=== PATIENT | male | born 1985 | race Caucasian/White ===

== ENCOUNTER 2019-08-03 16:29 | Emergency (ER) | payer OTHER, BC ==
[2019-08-03] MEDS ORDERED: Diphtheria,Pertussis(Acell),Tetanus Vaccine 0.5 ML Syringe IM ONE (16:54)
[2019-08-03] MEDS ORDERED: Sodium Chloride 0.9% 1,000 ML IV SCH (17:00)
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
--- NOTE | 2019-08-03 17:50 | CT ---
Head CT Technique: Multiple axial sections through the brain were obtained. Intravenous contrast was not utilized. Comparison: No prior intracranial imaging is available. Findings: Ventricles along with basal cisterns and sulci over the convexities are within normal limits for the patient's age. No abnormal parenchymal densities are seen. No evidence of intracranial hemorrhage. No midline shift or mass effect is seen. No acute calvarial abnormality is seen. Visualized sinuses show nothing acute. Mastoid sinuses are also clear. Impression: 1. Nothing acute is appreciated on noncontrast head CT exam. Diagnostic code #1
--- NOTE | 2019-08-03 17:52 | CT ---
CT facial bones Technique: Multiple axial sections through the facial bones were obtained. Reconstructed coronal and sagittal images were reviewed. Findings: Soft tissue air is noted within the left cheek and within the chin compatible with soft tissue injury. Right and left globes are symmetric. There is soft tissue swelling and a small amount of air at the bridge of the nose. Fracture is identified involving the right mandibular condyle with extension to the articular surface. Fracture is slightly comminuted. Mild articular step-off noted of the condylar condyle. No additional mandibular fracture is seen. Impression: 1. Fracture involving the right mandibular condyle with mild articular step-off and mild comminution. 2. Areas of soft tissue swelling and soft tissue air compatible with soft tissue injury. 3. No additional abnormality is appreciated. Diagnostic code #3
[2019-08-03] MEDS ORDERED: Bupivacaine 0.5% 10 ML SDV INJECT ONE (18:30)
[2019-08-03] MEDS ORDERED: Lidocaine 1% with EPINEPHrine 1:100,000 20 ML MDV INJECT ONE (18:30)
[2019-08-03] MEDS ORDERED: HYDROmorphone 1 MG/ML Syringe IVPUSH ONE (19:14)
[2019-08-03] MEDS ORDERED: Ondansetron 4 MG/2 ML SDV IVPUSH ONE (19:14)
[2019-08-03] MEDS ORDERED: Amoxicillin/Clavulanate K 875-125 MG Tab PO STA (20:04)
== END 2019-08-03 20:31 | disposition home or self-care (01) ==
LOC: JD.ED 16:29
DX: S02.611A Fracture of condylar process of right mandible, initial encounter for closed fracture (principal); S01.81XA Laceration without foreign body of other part of head, initial encounter; Z90.49 Acquired absence of other specified parts of digestive tract; W22.8XXA Striking against or struck by other objects, initial encounter; Y99.0 Civilian activity done for income or pay; Z23 Encounter for immunization
CPT/HCPCS: 12015; 70450; 70486; 90471; 90700; 96361; 96374; 96375; 99283; A9270; J1170; J2405; J3490; J7040; 99284